=== PATIENT | male | born 1970 | race Caucasian/White ===

== ENCOUNTER 2022-04-18 07:24 | Outpatient (CLI) | payer OTHER, SELFPAY | END 2022-04-18 07:25 | disposition home or self-care (01) | LOC: OP CLINIC 07:27 | PROVIDERS: PCP Internal Medicine; Visit Provider Surgery | DX: Z12.11 Encounter for screening for malignant neoplasm of colon (principal); K63.5 Polyp of colon; K64.4 Residual hemorrhoidal skin tags; Z80.0 Family history of malignant neoplasm of digestive organs | CPT/HCPCS: 45380; 88305; 99153; J2250; J3010 ==

== ENCOUNTER 2022-11-07 15:45 | Outpatient (CLI) | payer OTHER, SELFPAY | END 2022-11-07 15:46 | disposition home or self-care (01) | PROVIDERS: PCP Internal Medicine; Visit Provider Internal Medicine | DX: Z00.00 Encounter for general adult medical examination without abnormal findings (principal); Z13.6 Encounter for screening for cardiovascular disorders; Z12.5 Encounter for screening for malignant neoplasm of prostate; Z13.9 Encounter for screening, unspecified | CPT/HCPCS: 80053; 80061; 84153 ==

== ENCOUNTER 2023-02-13 16:56 | Emergency (ER) | payer OTHER, SELFPAY ==
[2023-02-13 17:14] VITALS: BP 166/116; PULSE 74; RESP 20; TEMP 36.2; O2SAT 94; BMI 32.8
--- NOTE | 2023-02-13 17:17 | ED.GENADULT ---
HPI - General Adult General Chief complaint: Extremity Pain/Injury, Upper Stated complaint: Dog bite, R pointer finger Time Seen by Provider: 02/13/23 17:07 History of Present Illness HPI narrative: was at the [employer] park with his dog. another dog and his dog stated to fight. he broke up the dogs and sustained a bite to his right hand. has a laceration on the right index finger. is able to move finger. feels that it was his dog that bit him. 52-year-old man presenting to the emergency department with concern of dog bite to the right index finger. He believes it was his own dog that bit him. Had been at the park with a ball that seems to be covered by other dogs. Another dog ended up latching onto his own dog Fiorella I believe, and had her neck pinned. He grabbed the other dogs college to pull off and he thinks that is when his dog flipped around and bit his right index finger. She is fully vaccinated. Unable to locate other dog or licensed massage therapist at this time. He himself is current on DTaP/tetanus. Some pain but not unbearable. Able to flex and extend. 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 He is right-hand dominant. Related Data Home Medications Medication Instructions Recorded Confirmed omeprazole 20 mg capsule,delayed 20 mg PO QDAY 03/15/22 02/08/23 release Previous Rx's Medication Instructions Recorded nicotine 14 mg/24 hr daily 1 patch transdermal Q24H Tobacco 11/07/22 transdermal patch Addiction #28 ea hydrocodone 5 mg-acetaminophen 325 1 tab PO Q4-6H PRN pain #10 tabs 02/08/23 mg tablet prednisone 20 mg tablet 20 mg PO BID Back Pain #10 tabs 02/08/23 cephalexin 500 mg capsule 500 mg PO TID 4 days #12 caps 02/13/23 Allergies Allergy/AdvReac Type Severity Reaction Status Date / Time citalopram Allergy Mild didnt work Verified 02/13/23 17:14 Review of Systems Status of ROS: Reports: 6 or more systems reviewed and unremarkable except as noted in History and below [facility] Medical History Back pain ?M54.9 - Dorsalgia, unspecified (ICD-10) Nicotine addiction ?F17.200 - Nicotine dependence, unspecified, uncomplicated (ICD-10) Cough ?R05.9 - Cough, unspecified (ICD-10) Screening due ?Z13.9 - Encounter for screening, unspecified (ICD-10) Colon cancer screening ?Z12.11 - Encounter for screening for malignant neoplasm of colon (ICD-10) Biceps tendon rupture ?S46.219A - Strain of muscle, fascia and tendon of other parts of biceps, unspecified arm, initial encounter (ICD-10) Surgical History H/O elbow surgery (09/03/06) ?Z98.890 - Other specified postprocedural states (ICD-10) History of ankle surgery (09/12/16) ?Z98.890 - Other specified postprocedural states (ICD-10) S/P ACL reconstruction (08/31/04) ?Z98.890 - Other specified postprocedural states (ICD-10) Status post laparoscopic appendectomy ?Z90.49 - Acquired absence of other specified parts of digestive tract (ICD-10) Family History Father Atrial fibrillation, chronic Mother Lung cancer Social History Narrative: Social: Lives alone, has SO. 1 adult child. 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 No drug use. Smoking Status: Current every day smoker What tobacco products do you use: cigarettes Smoking packs per day: 0.5 Smoking cigarettes per day: 10.0 Years smoked: 35 Smoking pack-years: 17.50 Do you use any of these nicotine containing products: None Second hand tobacco smoke exposure: No How often do you have a drink containing alcohol: 2-3 times a week How many standard drinks containing alcohol do you have on a typical day: 3 or 4 How often do you have six or more drinks on one occasion: Less than monthly AUDIT-C Alcohol total score: 5 Non-prescribed substance use: denies use Little interest or pleasure in doing things: several days Feeling down, depressed, or hopeless: not at all service: No Exam Narrative: Exam Narrative: Pleasant. NAD. Favoring the right hand. There is a laceration approximately 2.5 cm somewhat irregular laceration along the dorso-radial side of the right index finger going from the DIP joint to the charlie-lunar fold. There is a small subungual hematoma as well in the proximal aspect of the nail. Full dermal. Bleed slightly when manipulated. He has strength and sensation intact. Able to flex and extend in fully against resistance. Const: Vital Signs, click to edit/add: Vital Signs - 24 hr 02/13/23 17:14 Temperature 97.2 F L Pulse Rate [Pulse Oximeter] 74 Respiratory Rate 20 Blood Pressure [Ri ght Upper Arm] 166/116 H Pulse Oximetry 94 Oxygen Delivery Me thod Room Air Documenting provider has reviewed patient's vital signs: yes Course Vital Signs Vital signs: Initial Vital Signs Temperature 97.2 F L 02/13/23 17:14 Temperature Source Temporal Artery Scan 02/13/23 17:14 Pulse Rate 74 02/13/23 17:14 Pulse Rhythm Regular 02/13/23 17:14 Respiratory Rate 20 02/13/23 17:14 Blood Pressure 166/116 H 02/13/23 17:14 Blood Pressure Mean 132 H 02/13/23 17:14 Blood Pressure Position Supine 02/13/23 17:14 Pulse Oximetry 94 02/13/23 17:14 Oxygen Delivery Method Room Air 02/13/23 17:14 Vital Signs Temperature 97.2 F L 02/13/23 17:14 Pulse Rate 74 02/13/23 17:14 Respiratory Rate 20 02/13/23 17:14 Blood Pressure 166/116 H 02/13/23 17:14 Pulse Oximetry 94 02/13/23 17:14 Oxygen Delivery Method Room Air 02/13/23 17:14 Temperature 97.2 F L 02/13/23 17:14 Pulse Rate 74 02/13/23 17:14 Respiratory Rate 20 02/13/23 17:14 Blood Pressure 166/116 H 02/13/23 17:14 Pulse Oximetry 94 02/13/23 17:14 Oxygen Delivery Method Room Air 02/13/23 17:14 Medical Decision Making MDM Narrative Medical decision making narrative: Laceration appears to need repair partly given level of activity going to be sustained with his hand I would use sutures. I placed a digital block with Marcaine with excellent wound anesthesia achieved. Placed in Hibiclens solution and then scrubbed further with Shur-Clens solution. Sutured with 5-0 Ethilon sutures total of 3 loosely placed with very good wound approximation achieved. Antibiotic ointment and Band-Aid placed. See patient discharge plan --I called ahead to pharmacy to verify presence of cephalexin antibiotic Discharge Plan Discharge Clinical Impression: Dog bite, Finger laceration, Subungual hematoma Patient Disposition: Home, Self-Care Condition: Improved Additional Instructions: Elevate, ibuprofen, acetaminophen for discomfort. Antibiotic ointment and Band-Aid for protection over the next 4-5 days. Then can switch to a dry dressing. Sutures out in 10 days. Okay to get wet but avoid soaking during that time. Watch for indications of infection like redness passing that 1st knuckle, increasing redness after 2 days, marked increase in pain or swelling, purulent drainage. Cephalexin has been sent to [facility] as prophylactic antibiotic. Can drain hematoma as discussed if needed or return for care. Prescriptions: New cephalexin 500 mg capsule 500 mg PO TID 4 Days Qty: 12 0RF No Action nicotine 14 mg/24 hr patch 24 hour 1 patch transdermal Q24H Qty: 28 3RF omeprazole 20 mg capsule,delayed release(DR/EC) 20 mg PO QDAY prednisone 20 mg tablet 20 mg PO BID Qty: 10 0RF hydrocodone-acetaminophen 5-325 mg tablet 1 tab PO Q4-6H PRN (Reason: pain) Qty: 10 0RF Follow Up/Referrals: Cuauhtemoc Kan MD [Primary Care Provider] - Stand Alone Forms: Essential Viewing Info Instructions
--- NOTE | 2023-02-13 17:30 | ED.NURSE ---
Gabriel woodard was called and dispatch will send an officer to the ed to speak with Dipak. Dipak was aware that we are mandated to call the authorities when a dog bite injury is brought to the ed.
--- OUTSIDE RECORDS SUMMARY | 2023-02-13 17:37 | XMS_ITS | Continuity of Care Document ---
Author Name Unknown Organization [facility] Address [address] [place] [address] Phone Care Team Providers Care Director Of Promotions Name Role Phone Donna Oreilly MD Unavailable Unavailable Allergies, Adverse Reactions, Alerts Substance Reaction Status Criticality No Known Allergies Active No Inform ation Medications Medication Instructions Dosage Effective Dates (start - stop) Status Comments TYLENOL (unknown strength) Not Available - Active MELOXICAM (unknown strength) Not Available - Active Procedures Procedure Date Office/Outpatient Visit,[facility] 2014 X-Ray Exam Lwr Spine, Min 4 Views Advance Directives Directive Yes / No Effective Date File Name No Information Encounters Encounter Description Practice Location Reason(s) For Visit Diagnoses Date Provider Providers Copied on Encounter Office/Outpa tient Visit,[facility] [place], [address], [place], [place], [address] , [place] tel:[phone] [facility] OVERWEIGHTSpinal stenosis of lumbar region without neurogenic claudicationLumbar DDD [address]. [facility], [address], [place], [place], [address] , [place]. tel:[phone] Referring Provider: Angel Hameed, [facility] [address] [place] [address], [place], [address]. tel:[phone] Family History Family Member Type Diagnosis Age At Onset Problem (finding) Payers Payer name Insurance type Covered democrat ID Authoriza tion(s) No Information Social History Type Description Quantity Date Captured Comments Alcohol Use Details Unknown Caffeine Use Details Tobacco Use Status Ex-cigarette smoker 015 Smoking Status Former smoker Smoking Tobacco Use Details Cigarette: No Details Available Cigarette: No Details Available Non-Smoking Tobacco Use Details : Years Used 25 : Pack Year: 25 Sex Male Vital Signs Date / Time: Height Weight BMI Pulse Rate Blood Pressure Temperature Respiratory Rate Body Surface Area Head Circumference Head Circ. Percentile Wt./Regan. Percentile BMI percentile Pulse Ox Inhaled Ox 8:34 AM 71.00 in 97.522 kg (215.00 lbs) 29.9 9 kg/m eter (2) 66 /min 133/81 mm[Hg] Chief Complaint And Reason For Visit No Information Reason For Referral Reason For Referral No Information Plan Of Treatment Date Type Action Status Future Order: Radiology Order AP /Lat/Flex/Ext Lumb (APLatFlExL), Ordered on: Ordered History Of Present Illness Encounter Date Complaint History Of Prese nt Illness No Information Functional Status Date Functional Assessmen t No Information Instructions Date Instruction Additional Infor mation Weight Management Related to Ove rweight Assessments Type Assessment Date assessment OVERWEIGHT assessment Spinal stenosis of l umbar region without neurogenic claudication Patient Care Teams Name Effective Dates (start - stop) Status Members No Information
--- NOTE | 2023-02-13 18:19 | ED.NURSE ---
wound was soaking in dilute Hibiclens solution. Gabriel woodard has taken a report.
== END 2023-02-13 18:49 | disposition home or self-care (01) ==
PROVIDERS: Emergency Provider Family Medicine; PCP Internal Medicine
DX: S61.250A Open bite of right index finger without damage to nail, initial encounter (principal); T14.8XXA Other injury of unspecified body region, initial encounter; W54.0XXA Bitten by dog, initial encounter
CPT/HCPCS: 12001; 99283; 99284

== ENCOUNTER 2023-08-11 08:13 | Outpatient (CLI) | payer OTHER, SELFPAY ==
--- NOTE | 2023-08-11 08:15 | MR_ITS ---
[address] [address] Phone:?[phone] Fax:?[phone] Referring Physician Information: Lukas Bhakta M.D. [address] [facility] [address] Phone:?[phone] Fax:?[phone] Patient:John Robin D.O.B:?1970 Sex:?Male Phone:?[phone] [facility] MRN:?[id number] Exam Date:?08/11/2023 EXAM: MRI of the LEFT KNEE, without contrast CLINICAL INFORMATION: Male, 53 years old, with left knee pain. INDICATION: Evaluate medial meniscus. PRIOR SURGERY: History of knee arthroscopy PLAIN FILMS: Knee radiograph dated 08/09/2023. COMPARISONS: No prior MRIs available. TECHNICAL INFORMATION: Using a 1.5T MR scanner and a localizing surface coil: sagittals: PD, PDFS coronals: PD, T2FS axials: PD, PDFS SEDATION: None CONTRAST: None FINDINGS: Knee joint: Effusion: Mild-moderate left knee effusion. Popliteal cyst: Small, inferiorly leaking Perry cyst. Loose bodies: None. Subcutaneous and extra-articular soft tissues: Unremarkable. Ligaments: ACL: Status post ACL graft reconstruction. ACL graft is intact. Mild generalized arthrofibrosis is present. There is a 2.1 x 1.3 x 0.7 cm ganglion cyst in the tibial tunnel (coronal STIR series 8 image 16 and axial T2FS series 4 image 24). PCL: Intact PCL, without acute or chronic injury. MCL: Mild-moderate thickening and irregularity of the proximal one third of the superficial MCL (coronal PD series 7 image 17). LCL: Intact LCL, without injury. Posterolateral corner: No posterolateral corner soft tissue injury. Popliteus, biceps femoris, iliotibial band, popliteofibular ligament and lateral gastrocnemius are intact. Posteromedial corner: No posteromedial corner soft tissue injury. Semimembranosus, pes anserine tendons and posterior oblique ligament are without injury, tendinopathy or bursitis. Extensor mechanism: Patellar tendon: Intact, without tendinopathy. Quadriceps tendon: Intact, without tendinopathy. Retinacula: Medial and lateral retinacula are intact. Fat pads: Unremarkable infrapatellar Hoffa's, quadriceps and prefemoral fat pads. Medial compartment: Medial meniscus: Status post partial medial meniscectomy with a blunted/imaging appearance of the posterior horn and body segments. However, there is near full- thickness radial tearing at the posterior horn/root junction over a length of 1.6 cm (sagittal PDFS series 6 images 11-15). Meniscal extrusion measures 5 mm. No parameniscal cyst. Medial femoral condyle & tibial plateau: Broad-based grade II/III chondromalacia throughout the central, weightbearing aspect of the medial compartment, with mild marginal osteophytosis. Lateral compartment: Lateral meniscus: No articular surface, meniscosynovial junction or root tear. No displacement, extrusion or parameniscal cyst. Lateral femoral condyle: No chondromalacia or osteochondral abnormality. Lateral tibial plateau: No chondromalacia or osteochondral abnormality. Patellofemoral joint: Patella: Generalized grade II/III chondromalacia of the patella, with mild marginal osteophytosis. Trochlea: Broad-based grade II chondromalacia of the medial facet and central sulcus. Proximal tibiofibular joint: Unremarkable, without evidence of ligament sprain injury, joint effusion or adjacent marrow edema. Bones: Postoperative changes in the distal femur and proximal tibia reflect ACL reconstruction. The osseous structures are otherwise unremarkable. IMPRESSION: 1. Status post partial medial meniscectomy. Near full-thickness radial tearing of the posterior horn/root is present over a length of 1.6 cm, with 5 mm of meniscal extrusion. 2. 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 3. Status post ACL graft reconstruction. There is mild generalized arthrofibrosis with a 2.1 x 1.3 x 0.7 cm ganglion cyst in the tibial tunnel, but the ACL graft remains intact. 4. Mild-moderate knee joint effusion with a small, inferiorly leaking Perry cyst. 5. Chronic sequela low-grade proximal MCL sprain, without tear. No PCL or LCL sprain/tear. 6. No lateral meniscal tear or osteochondral abnormality of the lateral compartment. BC Electronically signed on 08/11/2023 12:14:00 PM by Bryce Camejo M.D.
--- OUTSIDE RECORDS SUMMARY | 2023-08-11 08:16 | XMS_ITS | Continuity of Care Document ---
Author Name Unknown Organization [facility] Address [address] [place] [address] Phone Care Team Providers Care Mortician Helper Name Role Phone Donna Oreilly MD Unavailable Unavailable Allergies, Adverse Reactions, Alerts Substance Reaction Status Criticality No Known Allergies Active No Inform ation Medications Medication Instructions Dosage Effective Dates (start - stop) Status Comments MELOXICAM (unknown strength) Not Available - Active TYLENOL (unknown strength) Not Available - Active Procedures Procedure Date Office/Outpatient Visit,[facility] 2014 X-Ray Exam Lwr Spine, Min 4 Views Advance Directives Directive Yes / No Effective Date File Name No Information Encounters Encounter Description Practice Location Reason(s) For Visit Diagnoses Date Provider Providers Copied on Encounter Office/Outpa tient Visit,[facility] [place], [address], [place], [place], [id number] , [place] tel:[phone] [facility] OVERWEIGHTSpinal stenosis of lumbar region without neurogenic claudicationLumbar DDD [address]. [facility], [address], [place], [place], [address] , [place]. tel:[phone] Referring Provider: Angel Hameed, [facility] [address] [place] [address], [place], [address]. tel:[phone] Family History Family Member Type Diagnosis Age At Onset Problem (finding) Payers Payer name Insurance type Covered green party ID Authoriza tion(s) No Information Social History [...]
== END 2023-08-11 08:14 | disposition home or self-care (01) ==
PROVIDERS: PCP Internal Medicine; Visit Provider Orthopaedic Surgery
DX: M25.562 Pain in left knee (principal); S83.242A Other tear of medial meniscus, current injury, left knee, initial encounter; M17.12 Unilateral primary osteoarthritis, left knee; M25.462 Effusion, left knee; S83.412A Sprain of medial collateral ligament of left knee, initial encounter; Z98.890 Other specified postprocedural states
CPT/HCPCS: 73721

== ENCOUNTER 2023-12-26 08:09 | Outpatient (CLI) | payer OTHER, SELFPAY ==
--- OUTSIDE RECORDS SUMMARY | 2023-12-26 08:11 | XMS_ITS | Continuity of Care Document ---
Author Name Unknown Organization [facility] Address [address] [place] [address] Phone Care Team Providers Care Hydrocrane Operator Name Role Phone Donna Oreilly MD Unavailable Unavailable Allergies, Adverse Reactions, Alerts Substance Reaction Status Criticality No Known Allergies Active No Inform ation Medications Medication Instructions Dosage Effective Dates (start - stop) Status Comments TYLENOL (unknown strength) Not Available - Active MELOXICAM (unknown strength) Not Available - Active Procedures Procedure Date Office/Outpatient Visit,[facility] 2014 X-Ray Exam Lwr Spine, Min 4 Views Advance Directives Directive Yes / No Effective Date File Name No Information Encounters Encounter Description Practice Location Reason(s) For Visit Diagnoses Date Provider Providers Copied on Encounter Office/Outpa tient Visit,[facility] [place], [address], [place], [place], [id number] , [place] tel:[phone] [facility] OVERWEIGHTSpinal stenosis of lumbar region without neurogenic claudicationLumbar DDD [address]. [facility], [address], [place], [place], [address] , [place]. tel:[phone] Referring Provider: Angel Hameed, [facility] [address] [place] [address], [place], [address]. tel:[phone] Family History Family Member Type Diagnosis Age [...]
--- OUTSIDE RECORDS SUMMARY | 2023-12-26 08:11 | XMS_ITS | Clinical Summary ---
Author Name Unknown Organization [facility] Address [place], [place] [address] Care Team Providers Care Building Official Name Role Phone Unavailable Primary Care Provider Unavailabl e Allergies Active Allergy Reactions Criticality Noted Date Comments Citalopram Sleep Disturbances 01/01/2016 Malaise, fatigue, excess sleepiness Venlafaxine Analogues Nausea And Vomiting Medium 01/03 Medications Medication Sig Dispensed Refills Start Date End Date Status omeprazole (PRILOSEC) 20 mg Delayed-Release capsuleIndications:C hronic GERD TAKE 1 CAPSULE BY MOUTH ONCE DAILY BEFORE A MEAL. 90 capsule 05/14/2018 Active Active Problems Problem Noted Date Diagnosed Date Bipolar II disorder with seasonal pattern 2016 Alcohol abuse 01/03/2017 Moderate episode of recurrent major depressive d isorder 09/13/2016 DDD (degenerative disc disease), lumbar 02/27/20 15 Lumbar disc herniation 02/26/2015 Esophageal reflux 01/19/2007 Immunizations Name Administration Dates Next Due COVID-19 vaccine (Tailor Made Oil 30mcg/0.3mL) P F, MDV 12/23/2020,12/02/2020 Td (Age >=7 Years) 04/20/2004 Tdap 05/03/2017,01/13/2014 Family History Medical History Relation Name Comments Good Health Brother Heart Disease Father Lung cancer Maternal Grandmother Cancer-breast Mother Lung cancer Mother July 06 Relation Name Status Comments Brother Alive Father Alive Maternal Grandmother Mother Neo nksgiving times 2016 Social History Tobacco Use Types Packs/Day Years Used Date Smoking Tobacco: Every Day Cigarettes 0.5 21 Started: 02/03/1998; Last attempted to quit: 02/03/2019 Smokeless Tobacco: Former Chew Quit: 08/18/2006 Tobacco Cessation:Ready to Q uit: No; Counseling Given: Yes Comments:1/2 ppd Alcohol Use Standard Drinks/Week Comments Not Currently 0 (1 standard drink = 0.6 oz pur e alcohol) quit 02/03/2019 PHQ-2 Answer Date Recorded PHQ-2 Score 3 02/14/2019 Social Connections Answer Date Recorded Frequency of Communication with Friends and Fami ly Not on file 09/04/2021 Financial Resource Strain Answer Date R ecorded Difficulty of Paying Living Expenses Not on file 09/04/2021 Difficulty of Paying Living Expenses Not on file 09/04/2021 Sex and Gender Information Value Date Recorded Sex Assigned at Not on file Gender Identity Not on file Sexual Orientation Not on file Obstetrics History Last Filed Vital Signs Vital Sign Reading Time Taken Comments Blood Pressure 138/84 07/11/2019 2:18 PM SUPPLIER QUALITY SPECIALIST Pulse 80 07/11/2019 2:18 PM SUPPLIER QUALITY SPECIALIST Temperature 37.2 ??C (98.9 ??F) 02/11/2019 1:59 PM CD T Respiratory Rate 20 10/24/2018 1:37 PM SUPPLIER QUALITY SPECIALIST Oxygen Saturation 96% 02/11/2019 1:59 PM CDT Inhaled Oxygen Concentration - - Weight 101.5 kg (223 lb 12.8 oz) 07/11/2019 2:18 PM SUPPLIER QUALITY SPECIALIST Height 180 cm (5' 10.87) 02/11/2019 1:59 PM CDT Body Mass Index 31.33 02/11/2019 1:59 PM CDT Plan of Treatment Health Maintenance Due Date Last Done Comments HIV for age 15-65 1986 Hepatitis C screening for age 18-79 1989 Colonoscopy through age 75 2016 BMI (ht and wt on same day) for age 18+ 02/12/2020 02/11/2019, 02/05/2019, 05/11/2018, Additional history exists Depression screening for age 12+ 02/15/2020 02/14/2019, 10/24/2018, 05/14/2018, Additional history exists Zoster (shingles) series for age 50+ (1 of 2) 2021 Lipids for age 45-75 05/03/2022 05/03/2017 COVID-19 vaccine series ( season) 2023 12/23/2020, 12/02/2020 Influenza for age 50-64 05/05/2024 Tetanus booster 05/03/2027 05/03/2017, 01/02, 04/20/2004 Tdap Completed 05/03/2017, 01/13/2014 Pneumococcal series for age 6-64 Aged Out No longer eligible based on patient's age to complete this topic Procedures Procedure Name Priority Date/Time Associated Diagnosis Comments LIPID PANEL W REFLEX MEASURED LDL Routine 05/03/2017 8:27 AM CDT Routine physical examination from Last 3 Months or Most Recently Relevant to Health Maintenance Results * LIPID PANEL W REFLEX MEASURED LDL (05/03/2017 8:27 AM CDT) CHOLESTEROL,TOTAL 187 100 - 199 mg/dL 05/03/2017 1:50 PM CDT [facility] TRIGLYCERIDES 125 <150 mg/dL 05/03/2017 1:50 PM CDT [facility] HDL CHOLESTEROL 49 >40 mg/dL 7 1:50 PM CDT [facility] NON-HDL CHOLESTEROL 138 <145 mg/dl 05/03/2017 1:50 PM CDT [facility] CHOL/HDL RATIO 3.82 <4.50 05/03/2017 1:50 PM CDT [facility] LDL CHOLESTEROL 113 <=130 mg/dL 05/03/2017 1:50 PM CDT [facility] PATIENT STATUS FASTING 05/03/2017 1:50 PM CDT [facility] Blood BLOOD SPECIMEN / Unknown Venipuncture / Unknown 05/03/2017 8:27 AM CDT 05/03/2017 8:27 AM CDT Usama Serrato MD CHEMISTRY [facility] [address] [place] [address], [place] [facility] [address] [place] [address], from Last 3 Months or Most Recently Relevant to Health Maintenance Dipak Robin Personal/Family Self 1970 [address] [id number] Dipak Robin Third Green Party Liability Self 1970 [address] [id number]
--- NOTE | 2023-12-26 08:15 | MR_ITS ---
[address] [address] Phone:?[phone] Fax:?[phone] Referring Physician Information: Lukas Bhakta M.D. [address] [facility] [address] Phone:?[phone] Fax:?[phone] Patient:John Robin D.O.B:?1970 Sex:?Male Phone:?[phone] [facility] MRN:?[id number] Exam Date:?12/26/2023 EXAM: MRI OF THE LEFT KNEE CLINICAL INFORMATION: The patient is a 53-year-old with left knee pain. Evaluate for medial meniscal injury. Evaluate for ACL tear. PRIOR SURGERY: The patient has a history of prior left knee surgery. COMPARISON STUDIES: Comparison is made to the prior MRI examination dated 08/21/2023. TECHNICAL INFORMATION: Imaging was performed on a high-field, 1.5 Stacy MR scanner. Axial proton-density and fat-suppressed T2 imaging of the left knee was performed in addition to sagittal proton-density and fat-suppressed proton- density imaging. Coronal proton-density and coronal STIR imaging was also performed. FINDINGS: Articular/Extraarticular collections: Effusion: Moderate. Popliteal cyst: A moderate popliteal cyst can be seen on sagittal series 6 image 9 and on axial series 4 image 21. Surrounding soft tissue edema and/or hemorrhage is noted. Loose bodies: No well-defined intra-articular loose bodies are seen. Subcutaneous and extraarticular soft tissues: Nonspecific subcutaneous soft tissue edema and/or hemorrhage can be seen along the anterior, anteromedial, and anterolateral aspects of the left knee. Osseous structures: There is cortical irregularity, subcortical edema, and mild subcortical cystic changes along the articular surfaces of the medial femoral condyle and medial tibial plateau, in keeping with meniscal abnormalities and chondral loss discussed below. Postsurgical changes are present, in keeping with prior ACL reconstruction. No evidence for additional bony injury about the knee can be seen. There is no evidence for fracture, contusion, or stress injury. Ligamentous structures: ACL: The patient is status post ACL graft reconstruction. The ACL graft appears intact. No well-defined cyclops lesion is identified. PCL: Intact and normal in appearance. MCL: Chronic residual changes of a prior incomplete MCL sprain are noted with splitting of the proximal and mid portions. Surrounding soft tissue edema and/or hemorrhage can be seen and the findings are in keeping with residual changes of a moderate grade 2 sprain. No transverse disruption of MCL fibers can be seen. LCL: Intact and normal in appearance. Posterolateral corner: Intact and normal in appearance. Posteromedial corner: No posteromedial corner soft tissue injury. Semimembranosus and pes anserine tendons demonstrate no tendinopathy or associated bursitis. Extensor mechanism/Patellar retinacular structures: Patellar tendon: Intact, without tendinopathy. Quadriceps tendon: Intact, without tendinopathy. Retinacula: The medial and lateral retinacula are intact. The medial patellofemoral ligament is intact. Medial compartment: Medial meniscus: There is evidence for prior partial medial meniscectomy. No definite evidence for well-defined recurrent or residual tearing of the medial meniscal remnant is identified. No definite evidence for parameniscal cyst formation is seen. Medial femoral condyle: Full-thickness and near full-thickness chondral loss can be seen along the central and posterior articular surfaces of the medial femoral condyle with underlying bony change, seen on sagittal series 6 image 10 and on coronal series 7 image 22. Medial tibial plateau: Full-thickness and near full-thickness chondral loss can be seen along the central and medial weightbearing surfaces of the medial tibial plateau. Underlying bony changes are noted. Lateral compartment: Lateral meniscus: No evidence for lateral meniscal tearing is present. No evidence for parameniscal cyst formation can be seen. Lateral femoral condyle: No chondromalacia, chondral defect, or osteochondral abnormality. Lateral tibial plateau: No chondromalacia, chondral defect, or osteochondral abnormality. Patellofemoral compartment: Patella: Broad-based changes of grade II to III chondromalacia can be seen along the articular surfaces of the patella on axial series 4 image 12. No full- thickness patellar chondral defects are identified. Trochlea: No chondromalacia, chondral defect, or osteochondral abnormality. Neurovascular: No definite neurovascular abnormalities are seen. CONCLUSION: 1. Status post ACL graft reconstruction. The ACL graft appears intact. 2. Chronic incomplete MCL sprain. 3. Evidence for prior partial medial meniscectomy can be seen. No definite evidence for recurrent or residual tearing is present. The lateral meniscus appears intact. 4. Full-thickness and near full-thickness chondral loss can be seen involving the medial joint compartment with underlying bony change. The findings have progressed in appearance when compared to the prior examination and are consistent with medial compartment osteoarthritic changes. 5. Moderate knee joint effusion and moderate popliteal cyst. AEC Electronically signed on 12/26/2023 11:24:00 AM by Prashanth Bello M.D.
== END 2023-12-26 08:10 | disposition home or self-care (01) ==
PROVIDERS: PCP Internal Medicine; Visit Provider Orthopaedic Surgery
DX: M25.562 Pain in left knee (principal); M25.462 Effusion, left knee; S83.412A Sprain of medial collateral ligament of left knee, initial encounter; S83.242A Other tear of medial meniscus, current injury, left knee, initial encounter; S89.92XA Unspecified injury of left lower leg, initial encounter
CPT/HCPCS: 73721

== ENCOUNTER 2024-01-02 08:33 | Day surgery (SDC) | payer OTHER, SELFPAY ==
[2024-01-02] VITALS (11 sets, daily range): BP systolic 114–159; BP diastolic 73–112; PULSE 53–102; RESP 14–16; TEMP 36–36.5; O2SAT 94–97; BMI 34.9
--- OUTSIDE RECORDS SUMMARY | 2024-01-02 08:36 | XMS_ITS | Clinical Summary ---
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 Pulse 80 07/11/2019 2:18 PM PERSONAL INSURANCE ADVISOR Temperature 37.2 ??C (98.9 ??F) 02/11/2019 1:59 PM CD T Respiratory Rate 20 10/24/2018 1:37 PM PERSONAL INSURANCE ADVISOR Oxygen Saturation 96% 02/11/2019 1:59 PM CDT Inhaled Oxygen Concentration - - Weight 101.5 kg (223 lb 12.8 oz) 07/11/2019 2:18 PM PERSONAL INSURANCE ADVISOR Height 180 cm (5' 10.87) 02/11/2019 1:59 [...] - 199 mg/dL 05/03/2017 1:50 PM CDT [facility] TRIGLYCERIDES 125 <150 mg/dL 05/03/2017 1:50 PM CDT [facility] HDL CHOLESTEROL 49 >40 mg/dL 7 1:50 PM CDT [facility] NON-HDL CHOLESTEROL 138 <145 mg/dl 05/03/2017 1:50 PM CDT [facility] CHOL/HDL RATIO 3.82 <4.50 05/03/2017 1:50 PM CDT [facility] LDL CHOLESTEROL 113 <=130 mg/dL 05/03/2017 1:50 PM CDT [facility] PATIENT STATUS FASTING 05/03/2017 1:50 PM CDT [facility] Blood BLOOD SPECIMEN / Unknown Venipuncture / Unknown 05/03/2017 8:27 AM CDT 05/03/2017 8:27 AM CDT Usama Serrato MD CHEMISTRY [facility] [address] [place] [address], [place] [facility] [address] [place] [address], from Last 3 Months or Most Recently Relevant to Health Maintenance Dipak Robin Personal/Family Self 1970 [address] [address] Dipak Robin [employer] Liability Self 1970 [address] [id number]
[2024-01-02] MEDS: LACTATED RINGERS 1000 ML 1,000 ML 100 ML IV (09:00)
[2024-01-02] MEDS: SODIUM CHLORIDE 0.9 % (FLUSH) 10 ML SYRINGE IVF (09:00)
[2024-01-02] MEDS: CEFAZOLIN 2 GM INJ IVP (10:23)
[2024-01-02] MEDS: BUPIVACAINE 0.25% 30 ML INJECTION (10:50)
--- NOTE | 2024-01-02 10:50 | P.ORPRC_ITS ---
Procedure Note Date of procedure: 01/02/24 Procedure: PREOPERATIVE DIAGNOSIS: Left knee medial meniscus tear POSTOPERATIVE DIAGNOSIS: Left knee medial meniscus tear, medial compartment osteoarthritis NAME OF OPERATION: Left knee arthroscopic partial medial meniscectomy SURGEON: Lukas Bhakta MD RECOVERY SPECIALIST: KENNEDY Castillo ANESTHESIA: Spinal ESTIMATED BLOOD LOSS: 0 mL COMPLICATIONS: None SPECIMENS: None DRAINS: None PREOPERATIVE ANTIBIOTICS: Ancef 2 gram INDICATIONS: The patient is a 53-year-old with a history of left knee medial pain. MRI scan is consistent with a medial meniscus root tear. Despite appropriate nonoperative management, including activity modification, antiinflammatories, mstg-vyj-equewek pain medication, bracing, physical therapy, and injections they continue to have pain and disability. Operative intervention was offered. The risks, benefits and expected outcomes were discussed in detail. These included but were not limited to: Infection, bleeding, injury to blood vessel or nerve, venous thromboembolism. All questions were answered to their satisfaction. PROCEDURE: Spinal anesthesia was administered. The patient was placed supine on the operating room table. The left lower extremity was prepped and draped in the usual sterile fashion. The limb was exsanguinated with the Mikey bandage. The pneumatic tourniquet was inflated to 300 mmHg. A standard anterolateral portal was established. The arthroscope was intro duced. The working portal was established anteromedially. Diagnostic arthroscopy was performed with findings as follows: The suprapatellar pouch is normal. Articular surface on the patella shows grade 2/3 change. Articular surface on the trochlea is normal. The medial gutter is normal. The medial compartment shows a small patch of grade 4 pattern changer and repairer the central aspect of the medial tibial plateau medially, there is a grade 4 kissing lesion on the medial femoral condyle. These lesions are surrounded with grade 3 change. The medial meniscus has a tear of the posterior root. The notch shows the ACL graft to be intact. The lateral compartment shows normal articular cartilage on the lateral femoral condyle and lateral tibial plateau. The lateral meniscus is normal. The lateral gutter is normal. Given the severity of the arthritis in the medial compartment, repair was not indicated. Therefore, the posterior horn of the medial meniscus was debrided with the shaver. Unstable chondral flaps on the medial femoral condyle, medial tibial plateau and patella were debrided with the shaver through both portals, taken to a stable base. Arthroscopic instruments were removed, the portal sites were Steri-Stripped closed, the knee was infiltrated with 30 mL of 0.25% Marcaine without epinephrine. A dry dressing was applied, the tourniquet was released. Sponge and needle counts were correct x 2. The patient tolerated the procedure well. There were no apparent complications. They were carefully transferred to the hospital bed and taken to the postanesthesia care unit in satisfactory condition. PLAN: The patient will be discharged to home. They may weightbear as tolerates. Range of motion will be unrestricted. They will follow up in the office next week for a wound check.
--- NOTE | 2024-01-02 11:02 | W.ANESCHARGE ---
Anesthesia Charges Start Date/Time Anesthesia Start Date: 01/02/24 Anesthesia Start Time: 10:07 Stop Date/Time Anesthesia Stop Date: 01/02/24 Anesthesia Stop Time: 11:04
== END 2024-01-02 12:35 | disposition home or self-care (01) ==
LOC: OR 08:34
PROVIDERS: PCP Internal Medicine; Visit Provider Orthopaedic Surgery
PROC: (CPT 29882; principal; 2024-01-02 10:30)
DX: M23.222 Derangement of posterior horn of medial meniscus due to old tear or injury, left knee (principal); M17.12 Unilateral primary osteoarthritis, left knee
CPT/HCPCS: 29881; 01400; J0665; J0690; J1100; J2250; J2405; J2704; J3010; J3490; J7120

== ENCOUNTER 2024-02-06 16:30 | Outpatient (RCR) | payer OTHER, SELFPAY ==
--- NOTE | 2024-01-11 16:16 | PT.OPEX ---
PT [place] Outpatient Eval initial eval PT [facility] Outpatient Eval Start: 01/11/24 07:42 Freq: Status: Active Protocol: Document 01/11/24 07:45 RJ (Rec: 01/11/24 16:14 RJ [id number]) E-signed By Gabo José DPT Physical Therapy Outpatient Evaluation Insurance Information Recert Due Date 04/05/24 Insurance Name Medicaid Medical Diagnosis L knee medial meniscectomy L knee OA Treating Diagnosis L knee pain muscle weakness Referring MD Mindy perry Subjective Subjective Avelino comes into clinic post medial meniscectomy DOS with grade 4 OA. Feels pretty sore still in the knee specifically with walking and stair type activity. Has a history of knee pain/injuries. Has had previous ACL repair done. Found out in 2022 he had the L knee meniscus tear but was more intermittent in terms of his pain. Ever since this past December pain seems to be a bigger issue and more consistent. Decided to get surgery. 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 KNEE ROM L 4-117 LLE MMT: deferred standard testing on surgical leg, WNL on R quad set moderate strength contraction slr flexion can perform partial arc with 1-2 degree extensor lag JOINT MOBILITY/PALPATION increased pain along medial joint line Assessment Assessment/Impression POST-OP Patient presents with signs and symptoms consistent with diagnosis of L knee medial meniscus repair , s/p 1.5 week post operative. Rehab potential is good. Castillo impairments include: decreased ROM and strength of the extremity, poor balance and compensatory gait patterning, pain/limitations with functional activities such as squatting, walking, and climbing stairs. Skilled PT is required to address these castillo impairments and to provide and progress with an appropriate home exercise program. Plan of Care Rehabilitation Potential Good Physical Therapy Goals GOALS Pt will be independent with HEP within 10-12 weeks to allow for independence and continued improvement past formal therapy Pt will improve knee AROM at least 0 to 120 for improved sit to stand transfers along with stair ambulation?within 10-12 weeks Patient will demonstrate/ report ability to walk for >60 minutes with pain level <1/10 , to allow for community and household ambulation within 10 -12 weeks Patient will demonstrate/ report ability to climb 12 steps with handrail in reciprocal fashion, to allow for household and community ambulation within 10-12 weeks Coordination/Communication With Referral Source Treatment Plan/Direct Interventions Electrical Stimulation,Gait Training,Joint Mobilization, Manual Therapy,Neuromuscular Re-ed,Self-Care/Home Management,Therapeutic Activities,Therapeutic Exercises Patient Will Be Discharged From Therapy Completion of LTG(s), Independent w/HEP, Independently Progressing Evaluation Billing Untimed Code Treatment Minutes 25 Complexity Low Certification Information Physician Comment/Change : Physician NPI Number #
== END 2024-06-05 23:59 | disposition home or self-care (01) ==
PROVIDERS: PCP Internal Medicine; Visit Provider Physician Assistant
DX: S83.242A Other tear of medial meniscus, current injury, left knee, initial encounter (principal); M17.12 Unilateral primary osteoarthritis, left knee; M25.562 Pain in left knee; M62.81 Muscle weakness (generalized); Z98.890 Other specified postprocedural states; Z87.828 Personal history of other (healed) physical injury and trauma; Z51.89 Encounter for other specified aftercare
CPT/HCPCS: 97110; 97161

== ENCOUNTER 2024-10-14 07:06 | Outpatient (CLI) | payer OTHER, SELFPAY ==
--- NOTE | 2024-10-14 07:15 | MR_ITS ---
[address] [address] Phone:?[phone] Fax:?[phone] Referring Physician Information: Lambert Mascorro M.D. [address] [id number] Phone:?[phone] Fax:?[phone] Patient:John Robin D.O.B:?1970 Sex:?Male Phone:?[phone] [facility] MRN:?[id number] Exam Date:?10/14/2024 EXAM: MRI OF THE RIGHT ELBOW, WITHOUT CONTRAST CLINICAL: Right elbow pain. Evaluate for sprain injury. COMPARISONS: X-rays dated 10/03/2024. TECHNICAL: Multiplanar multisequence MRI of the right elbow was obtained. SEDATION: None. CONTRAST: None. FINDINGS: Elbow joint: Effusion: Physiologic. Radiohumeral plica: No pathologic thickening or enlargement. Osteochondral surfaces: Minimal degenerative cystic change along the posterior capitellum on sagittal series 9 images 19 with mild degenerative peripheral marginal spurring involving the capitellum. No chondral defects identified. Bones: There is minimal reactive marrow edema involving the peripheral lateral distal humerus adjacent to the radial collateral ligament. No evidence of acute fracture or dislocation. Myotendinous structures: Biceps: There is tendinosis and ill-defined partial tearing of the distal biceps tendon as it extends to the radial attachment as seen on axial series 3 image 26-31. No evidence of significant tendon retraction. Mild partial tearing of the remainder of the tendon extends proximally into the myotendinous junction and there is increased fluid about the biceps tendon. Brachialis: No strain/tear. Triceps: Intact posterior tendinous and anterior muscular insertions. No significant tendinosis. Forearm extensors: There is moderate tendinosis with superimposed partial tearing of the common flexor tendon as seen on coronal series 5 images 15-17. Forearm flexors: No tear or tendinopathy. Ligaments: Medial ulnar collateral: No sprain or disruption. Radial collateral proper: Mild irregularity of the ligament may reflect sequelae of prior sprain injury, without complete disruption. Lateral ulnar collateral: Mild irregularity of the ligament may reflect sequelae of prior sprain injury, without complete disruption. Nerves: Ulnar: Normal. Median: Normal. Radial: Normal. IMPRESSION: 1. Tendinosis with ill-defined partial tearing of the distal biceps tendon as it extends to the radial attachment. Mild partial tearing of the more proximal tendon extends into the myotendinous junction and there is increased fluid about the biceps tendon. 2. Moderate tendinosis with superimposed partial tearing of the common extensor tendon at the lateral humeral epicondyle attachment. 3. Mild irregularity of the radial collateral proper and lateral ulnar collateral ligaments may reflect sequelae of prior sprain injuries. 4. Mild changes of arthrosis involving the capitellum. JCZ Electronically signed on 10/14/2024 12:09:00 PM by Tyrell Lancaster D.O.
== END 2024-10-14 07:07 | disposition home or self-care (01) ==
LOC: MRI 07:09
PROVIDERS: PCP Internal Medicine; Visit Provider Orthopaedic Surgery Sports Medicine
DX: M25.521 Pain in right elbow (principal); S46.211A Strain of muscle, fascia and tendon of other parts of biceps, right arm, initial encounter; S46.811A Strain of other muscles, fascia and tendons at shoulder and upper arm level, right arm, initial encounter; S53.441A Ulnar collateral ligament sprain of right elbow, initial encounter
CPT/HCPCS: 73221

== ENCOUNTER 2025-01-17 09:00 | Outpatient (RCR) | payer OTHER, SELFPAY ==
--- NOTE | 2024-10-17 17:13 | PT.OPEX ---
PT [place] Outpatient Eval PT [facility] Outpatient Eval Start: 10/17/24 08:50 Freq: Status: Active Protocol: Document 10/17/24 13:52 ZHENG (Rec: 10/17/24 17:05 ZHENG [id number]) E-signed By Nga Ware DPT Physical Therapy Outpatient Evaluation Insurance Information Insurance Name Augie Monroe Medical Diagnosis R partial distal bicep tendon tear Treating Diagnosis R bicep pain, R bicep weakness , R forearm pain, impaired R elbow ROM, impaired R elbow/UE mobility/strength, limited use of R UE with work restrictions/light duty Imaging Report Information MRI of the right elbow dated from [facility] shows tendinosis with ill-defined partial tearing of the distal biceps tendon extending to the radial attachment. Partial tearing that is mild of the more proximal mild tendinous junction with increased fluid about the biceps tendon. Moderate tendinosis superimposed upon partial tearing of the common extensor tendon at the lateral humeral epicondyle attachment. Mild irregularity of the radial collateral proper and lateral ulnar collateral ligaments likely reflecting sequelae of prior remote sprain injury. Mild arthrosis involving the capitellum. Subjective Subjective Patient reports injury to his R elbow at work on Oct 02. He was lifting a dry erase board with a coworker, hauling it down the stairs. He was moving the board to change his hand position and felt a pop and pain in his R elbow. Patient feared it was a biceps tendon tear as he had this injury to his L elbow back in 2005 with surgical repair needed for the L side. He did not see the bicep muscle popping out/rolled up so he was hoping it wasn't too bad. Denies any swelling or bruising after the injury. Patient seen by . Referred to ortho, had an MRI. MRI showed partial tear of R distal bicep tendon. MRI finding shown in above section . Patient reports some pain with certain movements of his arm/elbow. He denies pain at rest. He was using ice initially but has switched to the heating pad now. Reports having a small velcro elbow brace he uses with work activities now. He is going to get a better elbow support brace soon. He has been able to work with work restrictions . Per chart, no lifting over 5 pounds, no push/pull through hooker 15 pounds, avoid repetitive use of R UE. Pain range 0-10/10. Patient reports an occasional sharp pain with certain movements - flex, reaching, hand supination. Patient reports doing regular workouts , lifting, biking. He has wts , equipment at home. He has been able to continue with his lower body workouts, abs, and biking. Has been holding off on any UE workouts bilaterally. 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 Precautions Treatment Precautions/Contraindications restrictions of right upper extremity lift/carry less than 5 lb; push/pull less than 15 lb; limited repetitive use right upper extremity; may drive as tolerated Assessment Assessment/Impression Patient is a 54 year old male with R bicep pain, R bicep weakness, R forearm pain, impaired R elbow ROM, impaired R elbow/UE mobility/strength, limited use of R UE with work restrictions/light duty. Patient reports injury to R bicep/elbow at work on Oct 02 when he was lifting/carrying a dry erase board. He was shifting the board to change his hand position and felt a pop in his R elbow. MRI shows tendinosis with ill-defined partial tearing of the distal biceps tendon extending to the radial attachment. Partial tearing that is mild of the more proximal mild tendinous junction with increased fluid about the biceps tendon. Moderate tendinosis superimposed upon partial tearing of the common extensor tendon at the lateral humeral epicondyle attachment. Mild irregularity of the radial collateral proper and lateral ulnar collateral ligaments likely reflecting sequelae of prior remote sprain injury. Mild arthrosis involving the capitellum. He reports pain range of 0-10/10. Denies pain at rest. Has some occasional sharp pains with certain movements of R UE, including elbow flex, reaching, hand supination. He is able to demonstrate R elbow AROM with some pain and limited motion due to pain/tightness. R elbow flex to 130 degrees, lacking full elbow ext by 7 degrees this session. R shoulder AROM WFL and equal to L shoulder. R wrist ROM is WFL, there is some pain and limited motion with forearm/ hand pronation/supination secondary to pain/tightness. Patient has been able to continue working with restricted, light duty. He is using meloxicam, advil, tylenol as needed. He was icing initially and now using heat. He is wearing a velcro elbow brace for work and planning to get an elbow sleeve support brace to use at work. Patient is tight, tender with palpation R forearm musculature, extensor forearm > flexor forearm musculature. Denies any tenderness with palpation R bicep or R elbow region. Strength testing and special testing deferred this session with known MRI results. Able to initiate some gentle R elbow/forearm/wrist/hand ROM exercises this session. Also performed MT to R bicep and R forearm in area of reported pain. Patient reports MT felt good, ROM after MT with less pain. Patient instructed in MT for his home program as well. Patient would benefit from skilled PT for pain/sx management, improved R elbow/ forearm/wrist/hand ROM, improved R elbow/UE mobility/ strength, return to full work duties, and establishment of HEP. Plan of Care Rehabilitation Potential Good Physical Therapy Goals 1. Decrease R elbow/forearm pain to less than/equal to 3/ 10 with daily/work activities and with the progression of PT activities over the next 6-8 weeks. 2. Improve R elbow/forearm/ wrist ROM over the next 6-8 weeks for return to full motion with all daily/work activities without flare up of pain. 3. Improve R elbow/UE strength over the next 12-16 weeks for return to daily/housework/work activities without restrictions and lifting without flare up of pain. 4. Patient will be I with HEP within 16 weeks for progression toward above goals, ongoing self management of pain/sx, and for return to daily/work/lifting/housework activities without flare up of pain. Coordination/Communication With Referral Source Treatment Plan/Direct Interventions Manual Therapy,Therapeutic Exercises Frequency/Duration 1x/week Patient Will Be Discharged From Therapy Completion of LTG(s),Skills Plateau,Independent w/HEP, Independently Progressing Evaluation Billing Untimed Code Treatment Minutes 25 Complexity Moderate Certification Information Provider Signature Required Yes Provider Signature Shows Agreement With POC & Medical Necessity Physician NPI Number Write NPI# Here Physician Comment/Change : Physician Signature & Date Requested Please Sign/Date Here
== END 2025-01-29 11:02 | disposition home or self-care (01) ==
PROVIDERS: PCP Internal Medicine; Visit Provider Orthopaedic Surgery Sports Medicine
DX: S46.211A Strain of muscle, fascia and tendon of other parts of biceps, right arm, initial encounter (principal); Z02.6 Encounter for examination for insurance purposes; Z51.89 Encounter for other specified aftercare
CPT/HCPCS: 97035; 97110; 97140; 97162

== ENCOUNTER 2025-05-22 07:37 | Outpatient (CLI) | payer BC, SELFPAY | END 2025-05-22 07:38 | disposition home or self-care (01) | LOC: NFLDREF 05-28 06:17 | PROVIDERS: PCP Internal Medicine; Referring Provider Internal Medicine; Visit Provider Internal Medicine | DX: I10 Essential (primary) hypertension (principal) | CPT/HCPCS: 80053; 80061; G0103 ==

== ENCOUNTER 2025-05-29 15:46 | Outpatient (CLI) | payer BC, SELFPAY ==
--- NOTE | 2025-05-29 16:00 | CRLHL7_ITS ---
For Patients: As a result of the Cures Act, medical imaging exams and procedure reports are released immediately into your electronic medical record. You may view this report before your referring provider. If you have questions, please contact your health care provider. INDICATION: History of tobacco use. TECHNIQUE: Noncontrast low-dose screening chest CT scan. FINDINGS: No mediastinal or hilar adenopathy. No axillary adenopathy. Calcified right hilar lymph nodes. The lungs show a 1.2 cm calcified granuloma in the posterior aspect of the right lower lobe. 3 mm pulmonary nodule in the right upper lobe best seen on image 62 of series 2. No pneumothorax. No focal abnormalities identified in the visualized portions of the liver, spleen, pancreas, adrenal glands, and the upper portion of the kidneys. Impression : 1. 3 mm pulmonary nodule in the right upper lobe. Lung-RADS category 2: Benign. Recommend continued annual screening with a low-dose chest CT scan in 12 months. Please note that all CT scans at this facility use dose modulation, iterative reconstruction, and/or weight-based dosing when appropriate to reduce radiation dose to as low as reasonably achievable. Dictated by Baltazar Kennedy MD @ 06/02/2025 9:47:45 AM (Electronically Signed)
== END 2025-05-29 15:47 | disposition home or self-care (01) ==
LOC: CT 15:46
PROVIDERS: PCP Internal Medicine; Visit Provider Internal Medicine
DX: F17.200 Nicotine dependence, unspecified, uncomplicated (principal); R91.1 Solitary pulmonary nodule
CPT/HCPCS: 71271